=== PATIENT | male | born 1955 | race Two or more races ===

== ENCOUNTER 2022-06-13 07:16 | Outpatient (CLI) | payer OTHER | END 2022-06-13 07:21 | disposition home or self-care (01) | LOC: RAD 07:16 | PROVIDERS: ATTEND Urology | DX: I11.9 Hypertensive heart disease without heart failure (principal); N20.0 Calculus of kidney ==

== ENCOUNTER 2022-07-17 08:14 | Outpatient (CLI) | payer OTHER | END 2022-07-17 08:19 | disposition home or self-care (01) | LOC: RAD 08:14 | PROVIDERS: ATTEND Urology | DX: N20.0 Calculus of kidney (principal) ==